=== PATIENT | female | born 1990 | race African-American/Black ===

== ENCOUNTER 2017-07-06 16:53 | Emergency (ER) | payer BC, MEDICAID ==
[~2017-07-06] VITALS: Ht 165.1 cm; Wt 68.9 kg
[~2017-07-06 16:53] MED LIST: ACET500C PO; FERR325T PO; PRENTAB28 PO
[2017-07-06 17:54] LABS: Urine RBC None Seen /hpf (0 - 4)
[2017-07-06 17:59] LABS: Urine Bilirubin Negative (Negative); Urine Blood Negative /uL (Negative); Urine Color Straw (Yellow); Urine Glucose Normal (Normal); Urine Ketone Negative (Negative); Urine Nitrite Negative (Negative); Urine Squamous Epithelial Cell FEW /hpf (<5); Urine Urobilinogen Normal (Negative)
[2017-07-06 19:11] VITALS: BP 119/55
== END 2017-07-06 19:28 | disposition home or self-care (01) ==
LOC: ER 16:57
DX: O46.91 Antepartum hemorrhage, unspecified, first trimester (principal); Z3A.11 11 weeks gestation of pregnancy
CPT/HCPCS: 36415; 76801; 81001; 84702

== ENCOUNTER 2017-10-06 13:00 | Observation (INO) | payer MEDICAID ==
[2017-10-06 14:14] LABS: Urine Bilirubin Negative (Negative); Urine Blood Negative /uL (Negative); Urine Color Yellow (Yellow); Urine Glucose Normal (Normal); Urine Ketone 1+ (Negative); Urine Mucus FEW (None Seen); Urine Nitrite Negative (Negative); Urine RBC 2 /hpf (0 - 4); Urine Squamous Epithelial Cell FEW /hpf (<5); Urine Urobilinogen Normal (Negative); Urine pH 6.5 (5.0-8.0)
== END 2017-10-06 14:35 | disposition home or self-care (01) | DRG 566 ==
LOC: LDRP 13:00
PROVIDERS: ADMIT Specialist; ATTEND Specialist
DX: O26.892 Other specified pregnancy related conditions, second trimester (principal); N89.8 Other specified noninflammatory disorders of vagina; R10.9 Unspecified abdominal pain; Z3A.26 26 weeks gestation of pregnancy
CPT/HCPCS: 59025; 81001; 81002; G0378